=== PATIENT | female | born 1995 | race Hispanic/Latino ===

== ENCOUNTER 2016-08-27 05:40 | Emergency (ER) | payer OTHER, SELFPAY ==
[2016-08-27] MEDS ORDERED: Ibuprofen 200 MG TAB ONE (06:03)
--- NOTE | 2016-08-27 07:48 | RAD ---
2 VIEWS OF CHEST: Date: 08/27/16 COMPARISON: None. HISTORY: Left-sided chest and shoulder pain starting at 0200 hours. FINDINGS: Two views of the chest show normal sized cardiomediastinal silhouette. There is no evidence of conso lidation, mass, or pleural effusion. The bones are unremarkable. IMPRESSION: No evidence of acute cardiopulmonary disease. POS: [id number]
== END 2016-08-27 06:47 | disposition home or self-care (01) ==
LOC: NAV ERS 05:40
DX: S29.012A Strain of muscle and tendon of back wall of thorax, initial encounter (principal); R09.1 Pleurisy; Z79.899 Other long term (current) drug therapy; X58.XXXA Exposure to other specified factors, initial encounter
CPT/HCPCS: 71020